=== PATIENT | male | born 1945 ===

== ENCOUNTER 2021-05-26 01:32 | Outpatient (CLI) | payer OTHER, SELFPAY ==
--- NOTE | 2021-05-26 11:31 | DI.RAD_ITS ---
Exam(s) XR TIB/FIB RT EXAM: XR TIB/FIB RT CLINICAL HISTORY: FX,T14.8. TECHNIQUE: 2D digital imaging was performed. COMPARISON: No exams were available for comparison FINDINGS: There is no evidence of fracture of the tibia and fibula. There are moderate degenerative changes in the joint. There is soft tissue swelling on both sides of the ankle, more so medially than laterall y but no obvious ankle fracture evident. No widening of the mortise on this view. Talar dome appear s unremarkable. Mild degenerative changes in the ankle joint. A large inferior calcaneal spur is no corby. Vascular calcification posterior tibial arteries noted as well as in the peroneal artery. IMPRESSION: Findings as above but no obvious fractures. DATA REPOSITORY: RADIATION DOSE DELIVERED:
== END 2021-05-26 01:52 ==
PROVIDERS: Visit Provider Chiropractor
DX: M19.071 Primary osteoarthritis, right ankle and foot (principal)
CPT/HCPCS: 73590